=== PATIENT | male | born 1955 | race Caucasian/White ===

== ENCOUNTER 2025-04-02 10:05 | Day surgery (SDC) | payer MEDICARE, BC, SELFPAY ==
--- NOTE | 2025-04-01 07:00 | EKG_ITS ---
[facility] Test Date: 2025-04-01 Pat Name: ÓSCAR LUTZ Department: Room: - Gender: Male Pathology Technologist: JAILENE : 1955 Requested By: Angelica Garcia Order Number: [id number] Reading MD: Angelica Garcia Measurements Intervals [place] Rate: 54 P: 42 NC: 148 QRS: 39 QRSD: 102 T: 51 QT: 435 QTc: 414 Interpretive Statements SINUS BRADYCARDIA POSSIBLE RIGHT VENTRICULAR CONDUCTION DELAY [RSR (QR) IN V1/V2] No previous ECG available for comparison /[id number]/[id number].pdf
[2025-04-01 13:24] LABS: Basophils # (Auto) 0.1 Thou/mm3 (0.0-0.2); Basophils % (Auto) 1 % (0-2.5); Eosinophils # (Auto) 0.4 Thou/mm3 (0.0-0.5); Eosinophils % (Auto) 5 % (0-10); Hematocrit 42.0 % (41.0-53.0); Hemoglobin 14.2 g/dL (13.5-16.0); Immature Granulocytes Auto 0.06 Thou/mm3 (0.00-0.00); Lymphocytes # (Auto) 1.7 Thou/mm3 (1.0-4.8); Lymphocytes % (Auto) 24 % (10-50); Mean Corpuscular HGB Conc 33.8 g/dl (31.0-37.0); Mean Corpuscular Hemoglobin 30.3 pg (25.0-35.0); Mean Corpuscular Volume 90 fL (80-100); Monocytes # (Auto) 0.7 Thou/mm3 (0.0-0.8); Monocytes % (Auto) 9 % (0-12); Neutrophils # (Auto) 4.1 Thou/mm3 (1.8-7.7); Neutrophils % (Auto) 59 % (37-80); Nucleated Red Blood Cell # 0.00 Thou/mm3 (0.00-0.00); Nucleated Red Blood Cell % 0 /100 WBC (0); Platelet Count 234 Thou/mm3 (140-440); RDW Standard Deviation 43.7 fL (35.1-43.9); Red Blood Count 4.68 Miln/mm3 (4.50-5.90); White Blood Count 7.0 Thou/mm3 (3.8-10.6)
[2025-04-01 13:32] VITALS: BMI 21.9
[2025-04-01 13:32] LABS: Anion Gap 6 (7-16); BUN/Creatinine Ratio 13 Ratio (12-20); Blood Urea Nitrogen 12 mg/dL (9-23); Calcium 9.2 mg/dL (8.3-10.6); Carbon Dioxide 27.2 mMol/L (20.0-31.0); Chloride 108 mMol/L (98-107); Creatinine (Component) 0.9 mg/dL (0.6-1.3); Glucose 97 mg/dL (74-106); Osmolality,Calculated 280 (275-295); Potassium 5.0 mMol/L (3.4-5.1); Sodium 141 mMol/L (136-145); eGFR > 60 See Note
[2025-04-01 15:41] LABS: INR 1.0 (0.9-1.3); Partial Thromboplastin Time 25.8 Seconds (22.0-36.0); Prothrombin Time 10.3 Seconds (9.0-12.2)
[2025-04-02] VITALS (13 sets, daily range): BP systolic 121–169; BP diastolic 66–87; PULSE 56–84; RESP 10–20; TEMP 36.6–36.9; O2SAT 93–98
[2025-04-02] MEDS: SODIUM CHLORIDE 0.45 % 500 ML 100 ML IV (13:15)
--- NOTE | 2025-04-02 14:12 | PC.NURSE ---
5595 patient is awake alert, breathing unlabored, s/p LHC by Dr. Guerrero, TR band present to right wrist, no bleeding or hematoma noted, report received from Vicki HASTINGS 1400 Patient eating egg salad sandwich and drinking water, no nausea or vomiting at this time
--- NOTE | 2025-04-02 14:42 | PC.NURSE ---
1442 report given to Vicki HASTINGS
--- NOTE | 2025-04-03 17:46 | ESOP_ITS ---
RE: ÓSCAR LUTZ : 1955 DATE OF OPERATION: 04/03/2025 PROCEDURES PERFORMED: 1. Diagnostic left heart cardiac catheterization, selective coronary angiogram, left ventricular angiogram, CPT 73606. 2. Conscious sedation for 30 minute duration. 3. Ultrasound-guided access, right radial artery. DIAGNOSES: Abnormal stress test and angina pectoris. INDICATION: The patient is a 69-year-old male with history of hypercholesterolemia, mild hypertension, family history of heart disease, and recurrent shortness of breath. Cardiac stress test nuclear scan showed abnormal results. Hence, coronary angiogram was recommended as patient is a candidate for coronary intervention and revascularization. DESCRIPTION OF PROCEDURE: The patient was brought to the cardiac catheterization laboratory. The patient was given 2 mg of Versed and 50 mcg of fentanyl for conscious sedation. Right radial artery was cannulated with micropuncture technique. Ultrasound guidance was used to cannulate the right radial artery and a 6-Bengali Glidesheath was introduced. Selective right and left coronary angiogram, left heart catheterization, and left ventricular angiogram performed by 5-Bengali TIG 4 diagnostic catheter. The patient tolerated the procedure well no complications. Coronary angiogram showed following findings. Right coronary artery is large and dominant, gives off PDA and posterolateral branches, appear normal. Left coronary system: Left main coronary artery is normal. Left anterior descending artery is normal. Circumflex artery is normal. Left ventricular pressure recorded 110/6, aortic pressure 110/60, no gradient across the aortic valve. Left ventricular angiogram showed normal left ventricular wall motion, ejection fraction 70%. SUMMARY OF FINDINGS: 1. Nonobstructive normal epicardial coronary arteries. 2. Normal left ventricular systolic function, ejection fraction 70%. RECOMMENDATIONS: The patient was reassured about the absence of significant obstructive coronary artery disease. Prognosis is excellent in the absence of significant coronary artery disease. DT: 17:20:13 TT: 17:44:00 Ref: [id number] - TID: [id number]
== END 2025-04-02 16:10 | disposition home or self-care (01) ==
PROVIDERS: PCP Family Medicine; Referring Provider Internal Medicine Cardiovascular Disease; Visit Provider Internal Medicine Cardiovascular Disease
PROC: (CPT 93458; principal; 2025-04-02 11:30)
DX: I20.89 Other forms of angina pectoris (principal); I10 Essential (primary) hypertension; E78.00 Pure hypercholesterolemia, unspecified; Z79.899 Other long term (current) drug therapy; Z79.82 Long term (current) use of aspirin; Z01.810 Encounter for preprocedural cardiovascular examination; Z82.49 Family history of ischemic heart disease and other diseases of the circulatory system
CPT/HCPCS: 93458; 36415; 80048; 85025; 85610; 85730; 93005; 99152; A4649; C1769; C1887; C1894; J0461; J1643; J2250; J2312; J2371; J3010; J3490; J7030; Q9967; J2305